=== PATIENT | male | born 1985 | race Caucasian/White ===

== ENCOUNTER 2018-07-12 19:56 | Emergency (ER) | payer SELFPAY ==
[~2018-07-12] VITALS: Ht 162.6 cm; Wt 67.0 kg
[2018-07-12 20:50] VITALS: BP 181/94; PULSE 107; RESP 16; Ht 162.6 cm; Wt 67.0 kg
[2018-07-12] MEDS ORDERED: LIDOCAINE 2% (MDV) 20 ML INJ INJ STA (22:17)
--- NOTE | 2018-07-12 22:27 | ERD ---
ER Documentation Chief Complaint Chief Complaint FELL OFF SKATEBOARD, HEAD INJURY, DIZZINESS, LIGHT HEADED HPI This is a 33-year-old male with a nonsignificant past medical history presents ED with laceration to forehead status post falling off skateboard just prior to arrival in ED. Patient states that he was skateboarding and trying to do and all he excellently fell striking his head on a handrail. Patient did not have any loss of consciousness with this event. Admits to mild headache but states it has been gradual in onset not the worst headache of his life. Denies fever, chills, nausea, vomiting, tingling, numbness, lack sensation, blurry vision, changes in vision, weakness, and all other symptoms. Patient does have some bloodshot eyes in the emergency department and when I asked if he had been smoking marijuana earlier today he admits to smoking marijuana. Unsure if tetanus is up-to-date. Does not take blood thinners ROS All systems reviewed and are negative except as per history of present illness. Allergies Allergies: Coded Allergies: No Known Allergy (Unverified , 07/12/18) PMhx/Soc Medical and Surgical Hx: pt denies Medical Hx, pt denies Surgical Hx Hx Alcohol Use: No Hx [facility] Hx Tobacco Use: No Smoking Status: Never smoker FmHx Family History: No diabetes Physical Exam Vitals Vital Signs Date Temp Pulse Resp B/P (MAP) Pulse Ox O2 O2 Flow FiO2 Time Delivery Rate 07/12/18 97.9 107 16 181/94 99 20:50 (123) Physical Exam Physical Exam Vitals signs: Reviewed by me. General: Well developed, well nourished, in no acute distress. Patient is awake and alert. Head: Normocephalic, atraumatic.No periorbital ecchymosis, no mastoid ecchymosis or mastoid tenderness Eyes: Normal conjunctiva, Pupils PERRLA, EOM intact grossly ENT: Pharynx is clear, Moist mucous membranes, external ears, nose and mouth normal Neck: Supple, no masses, lymphadenopathy or JVD Respiratory: Clear to auscultation bilaterally with no wheezing, rhonchi, rales, no distress Cardiovascular: RRR, no murmurs, rubs, or gallops Abdominal: Soft, non-tender, non-distended, no peritoneal signs : Deferred MSK: No edema, no unilateral swelling, 5/5 strength Back: No midline tenderness. No flank tenderness Neurologic: Alert and oriented, moving all extremities, normal speech, no focal weakness, no cerebellar signs. Normal mentation Cranial nerves II through XII intact bilaterally Skin: There is a 3 cm laceration along patient's right forehead, Psych: Normal mood Results 24 hrs Current Medications Medications Dose Sig/Venus Start Time Status Last (Trade) Ordered Route PRN Stop Time Admin Dose Reason Admin Diphtheria/ 0.5 ml ONCE ONCE 07/12/18 DC 07/12/18 Tetanus/Acell IM* 22:30 22:26 Pertussis 07/12/18 22:31 (Adacel) Lidocaine 20 ml ONCE STAT 07/12/18 DC (Xylocaine INJ 22:17 2% (Mdv) 20 07/12/18 22:18 ml) Procedures/MDM PROCEDURES: Laceration Repair by me: Anesthesia: 2% lidocaine Location: Forehead Tendon/Joint/Nerves: No injury Foreign body: None detected after copious irrigation and exploration Technique: 5 Simple Interrupted Sutures Complexity: No subcutaneous sutures/mucosal repair/edge excision Post Closure Length: 3 cm Patient's bleeding was easily controlled in the department and there is no indication of anemia. No evidence of compartment syndrome, neurologic injury, vascular injury, open joint, tendon laceration, or foreign body. Patient is appropriate for outpatient follow up. 48 hour wound check. Scar minimization instructions given. ER COURSE: The patient was stable throughout ED course. I kept the patient and/or family informed of laboratory and diagnostic imaging results throughout the emergency room course. The patient was promptly evaluated and a treatment plan was devised based on H&P and other data. This plan was discussed with the patient who agreed and had no further questions or concerns prior to discharge. MEDICAL DECISION MAKIN-year-old male presents ED with forehead laceration status post falling off skateboard earlier today. Per the [place] head CT rule patient does not require any advanced imaging in the emergency department today. Laceration was repaired in ED and instructions for post care were discussed. No evidence of skull fracture, facial fracture, intracranial pathology, intracranial hemorrhage, subdural hematoma, epidural hematoma, subarachnoid hemorrhage, midli ne shift, compartment syndrome, neurologic injury, vascular injury, open joint, tendon laceration, fracture, dislocation, or foreign body. Patient's vitals are stable and pt can be managed with close out patient follow up. Advised patient to return to ED or to be seen by primary care for a 48 hour wound check. Pt will also need to return to ED or be seen by primary care provider to have sutures removed in 7 days. Return to ED with any worsening symptoms and if patient starts experiencing fever, chills, purulent drainage, warmth, swelling at laceration site this may be indications that wound has become infected and patient may need antibiotics. DISPOSITION PLAN: We discussed follow up with the patient's primary care doctor within 24 to 48 hours. Patient counseled regarding my diagnostic impression and care plan. Prior to discharge all questions answered. Pt agrees with treatment plan and understands strict return precautions. Precautionary instructions provided including instructions to return to the ER if not improving or for any worsening or changing symptoms or concerns. SPECIALIST FOLLOW UP RECOMMENDED: None Patient has been advised to follow up with primary care in 1-2 days. Disclaimer: Inadvertent spelling and grammatical errors are likely due to EHR/dictation software use and do not reflect on the overall quality of patient care. Also, please note that the electronic time recorded on this note does not necessarily reflect the actual time of the patient encounter. Departure Diagnosis: Primary Impression: Forehead laceration Encounter type: initial encounter Qualified Codes: S01.81XA - Laceration without foreign body of other part of head, initial encounter Condition: Stable Patient Instructions: Laceration, Face (Suture Or Tape) Referrals: [facility] Additional Instructions: Return in 2 days or be seen by her primary care physician for wound check. Will need to have sutures removed in 7 days. Patient advised to return to the ED immediately for new or worsening symptoms. Patient advised to follow up with primary care provider in the next 24-48 hours. Patient verbalized understanding and agrees with treatment plan and course of action. If patient has no primary care they may follow up with one of the community clinics listed on the following page or one of the options listed below [facility] + [facility] [address] [place] [address] or [facility] [address] [place] [address] or [facility] [address] [place] [address] RAJAT DORAN PA-C Jul 12, 2018 22:27
[2018-07-12] MEDS ORDERED: DIPHTH/TET/ACEL PERTUSS (ADULT) 0.5 ML VIAL IM* ONE (22:30)
== END 2018-07-12 23:13 | disposition home or self-care (01) ==
LOC: FTE 19:56
DX: S01.81XA Laceration without foreign body of other part of head, initial encounter (principal); V00.131A Fall from skateboard, initial encounter; Y92.9 Unspecified place or not applicable; Z23 Encounter for immunization
CPT/HCPCS: 90471; 90715